=== PATIENT | male | born 1975 | race Two or more races ===

== ENCOUNTER 2021-12-27 14:40 | Outpatient (CLI) | payer OTHER | END 2021-12-27 23:59 | disposition home or self-care (01) | LOC: LAB 14:40 | PROVIDERS: ATTEND Specialist | DX: Z01.812 Encounter for preprocedural laboratory examination (principal); Z20.822 Contact with and (suspected) exposure to COVID-19 | CPT/HCPCS: U0003; C9803 ==

== ENCOUNTER 2021-12-31 06:07 | Day surgery (SDC) | payer OTHER ==
--- NOTE | 2021-12-31 07:40 | NUR ---
RN OPENING NOTE- DAY SURGERY PT. VS STABLE, BP- 126/80, HR- 80, RR- 20, T- 98.1 , PICKED UP / TRANSPORT FOR CARPAL TUNNEL RELEASE LT.
--- NOTE | 2021-12-31 09:46 | NUR ---
RN NOTE- PT RETURNED TO UNIT. SPLINT AND DRESSING ON LT WRIST. DRY INTACT. MOVES ALL DIGITS , WARM TO TOUCH, GOOD CAPILLARY REFILL, MILD PAIN STATED. DC HOME WHEN COMFORTABLE PER ORDERS
[2021-12-31] MEDS ORDERED: ANESTHESIA TRAY IN PYXIS 1 EA TRAY MC ONE (10:21)
--- NOTE | 2021-12-31 10:50 | NUR ---
RN NOTE- PT COMFORTABLE AND READY TO DC . FAMILY AT FACILITY TO P/U. IV DC'D, ID WRISTBAND REMOVED. ESCORTED OUT OF FACILITY
[2021-12-31] MEDS ORDERED: HYDROCODONE/APAP 5/325MG TABLET PO PRN ×2 (11:30)
== END 2021-12-31 19:00 | disposition home or self-care (01) ==
LOC: DS 06:07 → MED 06:08 → UNDOADMIN 06:08 → UNDODISIN 11:00 → DS 19:00
PROVIDERS: ATTEND Specialist
DX: G56.02 Carpal tunnel syndrome, left upper limb (principal); I10 Essential (primary) hypertension; E11.9 Type 2 diabetes mellitus without complications; E66.01 Morbid (severe) obesity due to excess calories; Z98.890 Other specified postprocedural states; Z79.899 Other long term (current) drug therapy
CPT/HCPCS: 64721; 71045; J0690; J1100; J2704; J1885; J2405; J7030; J3490; G0378